=== PATIENT | male | born 1965 | race African-American/Black ===

== ENCOUNTER 2017-01-01 16:31 | Emergency (ER) | payer OTHER ==
[~2017-01-01] VITALS: Ht 180.3 cm; Wt 93.4 kg
[2017-01-01 16:32] VITALS: BP 145/86
[2017-01-01] MEDS ORDERED: GLUC750T2 (16:43)
[2017-01-01] MEDS ORDERED: PRED20TA PO (17:46)
[2017-01-01] MEDS ORDERED: ROBA500T PO (17:46)
== END 2017-01-01 18:06 | disposition home or self-care (01) ==
LOC: M ED 17:36
DX: M51.36 Other intervertebral disc degeneration, lumbar region (principal); M54.40 Lumbago with sciatica, unspecified side; Z79.899 Other long term (current) drug therapy

== ENCOUNTER 2019-03-04 14:00 | Emergency (ER) | payer OTHER ==
[~2019-03-04] VITALS: Ht 180.3 cm; Wt 94.2 kg
[~2019-03-04 14:00] MED LIST: GLUC750T13; PRED20TA PO; ROBA500T PO
[2019-03-04] MEDS ORDERED: TAMS1CAP17 PO (14:10)
[2019-03-04] MEDS ORDERED: LISI10TA4 PO (14:10)
[2019-03-04] MEDS ORDERED: D 101000 PO (14:10)
[2019-03-04] MEDS ORDERED: FAMOTIDINE INJ 20MG/2ML VIAL (S0028) IVP ONE (15:00)
[2019-03-04] MEDS ORDERED: dexameTHASONE 20 MG/5 ML VIAL (J1100) IV ONE (15:00)
[2019-03-04] MEDS ORDERED: diphenhydrAMINE INJ 50MG/ML VIAL (J1200) IV ONE (15:00)
[2019-03-04] MEDS ORDERED: AMLO25TA PO (16:43)
[2019-03-04 16:51] VITALS: BP 132/87
== END 2019-03-04 17:14 | disposition home or self-care (01) ==
LOC: M ED 14:00
DX: N18.3 Chronic kidney disease, stage 3 (moderate) (principal); T78.3XXA Angioneurotic edema, initial encounter; X58.XXXA Exposure to other specified factors, initial encounter; Y92.89 Other specified places as the place of occurrence of the external cause; Z79.899 Other long term (current) drug therapy
CPT/HCPCS: 12001; 80047; 96374; 96375; 99284; J1100; J1200

== ENCOUNTER 2019-04-28 11:50 | Day surgery (SDC) | payer OTHER ==
[~2019-04-28] VITALS: Ht 180.3 cm; Wt 91.6 kg
[~2019-04-28 11:50] MED LIST changes: +AMLO25TA PO; +D 101000 PO; +LISI10TA4 PO; +NS 1,000 ML IV ONE; +TAMS1CAP17 PO
[2019-04-28] MEDS ORDERED: LIDOCAINE 2% INJ 100 MG/5 ML SDV (FOR ANES.) As Ordered ONE (13:20)
[2019-04-28] MEDS ORDERED: propofoL 200 MG/20 ML VIAL As Ordered ONE ×2 (13:20→14:10)
--- NOTE | 2019-04-28 14:26 | ROOR ---
Patient Name: Eliu Black Procedure Date: 04/28/2019 1:57 PM Date of : 1965 Age: 53 Room: [facility] Gender: Male Note Status: Finalized Procedure: Total Colonoscopy to Cecum + Cold Snare Polypectomy Indications: Screening for colorectal malignant neoplasm Providers: Jorge Wood MD Referring MD: Niyah [facility], [facility], Admin. Requesting Provider: Medicines: Monitored Anesthesia Care Complications: No immediate complications. Procedure: Pre-Anesthesia Assessment: - The heart rate, respiratory rate, oxygen saturations, blood pressure, adequacy of pulmonary ventilation, and response to care were monitored throughout the procedure. The Colonoscope was introduced through the anus and advanced to the cecum, identified by appendiceal orifice and ileocecal valve. The colonoscopy was performed without difficulty. The patient tolerated the procedure well. The quality of the bowel preparation was fair. Findings: The perianal and digital rectal examinations were normal. Non-bleeding internal hemorrhoids were found during retroflexion. The hemorrhoids were small and Grade I (internal hemorrhoids that do not prolapse). A small polyp was found in the hepatic flexure. The polyp was sessile. The polyp was removed with a cold snare. Resection and retrieval were complete. The exam was otherwise without abnormality on direct and retroflexion views. Impression: - Preparation of the colon was fair. - Non-bleeding internal hemorrhoids. - One small polyp at the hepatic flexure, removed with a cold snare. Resected and retrieved. - The examination was otherwise normal on direct and retroflexion views. - The exam was otherwise normal to the cecum. Recommendation: - Patient has a contact number available for emergencies. The signs and symptoms of potential delayed complications were discussed with the patient. Return to normal activities tomorrow. Written discharge instructions were provided to the patient. - High fiber diet. - Discharge patient to home. - Continue present medications. - Await pathology results. - Telephone GI clinic for pathology results in 1 week. - Repeat colonoscopy in 5 years for surveillance based on pathology results. - Return to referring physician. - The findings and recommendations were discussed with the patient's family. Jorge Wood MD Jorge Wood MD 04/28/2019 2:25:56 PM Electronically signed by Jorge Wood MD Number of Addenda: 0 Note Initiated On: 04/28/2019 1:57 PM Estimated Blood Loss: Estimated blood loss: none.
[2019-04-28 14:50] VITALS: BP 164/81
== END 2019-04-28 15:20 | disposition home or self-care (01) ==
LOC: M OPP 11:50
PROVIDERS: ATTEND Internal Medicine Gastroenterology
DX: Z12.11 Encounter for screening for malignant neoplasm of colon (principal); K64.0 First degree hemorrhoids; D12.3 Benign neoplasm of transverse colon; I12.9 Hypertensive chronic kidney disease with stage 1 through stage 4 chronic kidney disease, or unspecified chronic kidney disease; M19.90 Unspecified osteoarthritis, unspecified site; R06.83 Snoring; N18.9 Chronic kidney disease, unspecified; Z88.8 Allergy status to other drugs, medicaments and biological substances; Z79.899 Other long term (current) drug therapy

== ENCOUNTER 2019-05-28 15:26 | Emergency (ER) | payer OTHER ==
[~2019-05-28] VITALS: Ht 180.3 cm; Wt 94.5 kg
[~2019-05-28 15:26] MED LIST changes: -NS 1,000 ML IV ONE
[2019-05-28 17:29] VITALS: BP 139/71
== END 2019-05-28 17:31 | disposition home or self-care (01) ==
LOC: M ED 15:26
DX: H11.32 Conjunctival hemorrhage, left eye (principal); I10 Essential (primary) hypertension; M54.9 Dorsalgia, unspecified; Z87.442 Personal history of urinary calculi; Z79.899 Other long term (current) drug therapy; Z88.8 Allergy status to other drugs, medicaments and biological substances

== ENCOUNTER 2019-07-23 12:07 | Inpatient (IN) | payer OTHER ==
[~2019-07-23] VITALS: Ht 180.3 cm; Wt 98.7 kg
[2019-07-23] MEDS ORDERED: ACETAMINOPHEN 325 MG TAB PO ONE (12:30)
[2019-07-23] MEDS ORDERED: AZITHROMYCIN 250 MG TAB PO ONE (12:30)
[2019-07-23] MEDS ORDERED: IPRATROPIUM 0.5MG/ALBUTEROL 2.5MG INH SOL UD 3ML (DUONEB)(J7620) NEB ONE ×3 (12:30→14:00)
[2019-07-23] MEDS ORDERED: PROAAER10 INH (12:58)
[2019-07-23] MEDS ORDERED: ZITHTAB PO (12:58)
--- NOTE | 2019-07-23 13:45 | REP ---
Clinical: Shortness of breath. Technique: PA and lateral. Comparison: 11/10/2015. Findings: Large right upper lobe consolidation with air bronchograms and right lower lobe opacity consistent with multifocal pneumonia. Left hemithorax appears clear. No obvious effusion. No pneumothorax. Skeletal structures intact. Impression: Multifocal right-sided pneumonia. Electronically Signed by Rodolfo Gupta MD 07/23/2019 01:36 P
[2019-07-23] MEDS ORDERED: NS 1,000 ML IV ONE (14:00)
[2019-07-23] MEDS ORDERED: cefTRIAXone SOD 1 GM in D5W MINI-BAG PLUS 50 ML IV ONE (14:00)
[2019-07-23] MEDS ORDERED: AMLO2.5T3 PO (14:06)
[2019-07-23] MEDS ORDERED: VITA100066 PO (14:06)
[2019-07-23 14:11] LABS: HEMATOCRIT 42.1 % (42.0-52.0); HEMOGLOBIN 14.3 g/dl (13.5-17.5); MEAN CORPUSCULAR HEMOGLOBIN 29.2 pg (27.0-33.0); MEAN CORPUSCULAR VOLUME 86.1 fl (80.0-96.0); PLATELET COUNT, AUTOMATED 106 10^3/uL (150-450); RED BLOOD COUNT 4.89 10^6/uL (4.30-6.10)
[2019-07-23 14:32] LABS: CREATININE FOR GFR 1.93 MG/DL (0.70-1.30); GLOMERULAR FILTRATION RATE 47.4 (>56); POTASSIUM SERUM 3.8 MEQ/L (3.5-5.1)
--- NOTE | 2019-07-23 15:00 | REP ---
Clinical: Shortness of breath. Technique: Axial noncontrast images from the thoracic inlet to the upper abdomen with coronal and sagittal re-formations. Comparison: Chest x-ray dated 07/23/2019 Findings: Right upper lobe and right lower lobe consolidations with air bronchograms consistent with multifocal pneumonia. Very minimal atelectasis noted in the right middle lobe and left base. No effusion. No pneumothorax. Tracheobronchial tree is patent. No significant adenopathy. Mediastinum demonstrates normal thoracic aorta, pulmonary vasculature and heart/pericardium. Musculoskeletal structures are intact. Impression: Acute right-sided multifocal pneumonia. Follow-up to resolution. Electronically Signed by Rodolfo Gupta MD 07/23/2019 02:53 P
[2019-07-23] MEDS ORDERED: ACETAMINOPHEN TAB 650MG DOSE (2X325MG) PO PRN (15:45)
[2019-07-23] MEDS ORDERED: ONDANSETRON 4MG/2ML VIAL (J2405) IV PRN (15:45)
[2019-07-23 16:30] VITALS: BP 107/72
[2019-07-23] MEDS: NS 1,000 ML IV SCH (17:07)
--- NOTE | 2019-07-23 17:29 | HPEPDOC ---
[facility] Medical History & Physical Date of Admission Jul 23, 2019 Date of Service: Jul 23, 2019 Attending Physician: JABARI SOTO MD History and Physical CHIEF COMPLAINT: Shortness of Breath and chills HISTORY OF PRESENT ILLNESS: Patient is a 53 year male who presented to the [facility] ER with complaint of shortness of breath and fevers starting three days ago. He stated that he was at the movies with his children when he noticed shortness of breath. and chills. He stated that since that time he has had chills and felt feverish. He denied any coughing or sputum production. He denies any chest pain. He denies any pain with deep inspiration however states that he does feel uncomfortable. He admits to some wheezing. He admits to some nausea but denies vomiting. In addition to his shortness of breath the patient admits to diarrhea which started on Sunday as well. He stated that he has continued to have diarrhea today. In the ER the patient was slightly hypertensive and febrile. He was hypoxic with an oxygen saturation of 89% on room air. The patient was tachycardic. He received a chest x-ray which demonstrated a large right sided consolidation. This was followed up with a CT of the chest which demonstrated acute right-sided multifocal pneumonia. Additionally, the patient was found to have an elevation in his Creatinine. He does admit to a history of kidney issues in which he has no function of his left kidney. He states that he is unsure of what the cause of his kidney issue was. The patient was ambulated in the ER with oxygen and desaturations were noted to less than 88%. Hospitalist service was consulted and the patient was admitted for further evaluation and management PAST MEDICAL HISTORY: 1. Hypertension 2. Chronic Kidney Disease (Cr of 1.7 in 03/2010) 3. 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 He is a nonsmoker. He denies vaping. He denies any tobacco use. He denies IV or illicit drug use. He denies any recent contacts or exposure to TB. FAMILY HISTORY: Patients mother is a diabetic. His father has a history of stroke. His brother and sisters are alive and well without any significant medical history ALLERGIES: Please see below. REVIEW OF SYSTEMS: CONSTITUTIONAL: Admits to fevers and chills. Denies unintentional weight loss. Denies night sweats HEENT: Denies dysphagia or sore throat. Denies lymphadenopathy. CARDIOVASCULAR: Denies chest pain or pressure. Denies palpitations or feelings of the heart racing RESPIRATORY: Admits to shortness of breath. Denies cough or sputum production. Denies hemoptysis. GASTROINTESTINAL: Denies abdominal pain. Denies nausea, vomiting. Admits to diarrhea. Denies bloody stool or dark tarry stool GENITOURINARY: Denies dysuria or increased frequency/urgency SKIN: Denies rashes or lesions MUSCULOSKELETAL: Denies weakness. Denies muscle pains or aches NEUROLOGICAL: Denies changes in gait or speech. Denies changes in balance PSYCHIATRIC: Denies depression or anxiety ENDOCRINE: Denies heat intolerance or cold intolerance. Denies diabetes HEMATOLOGIC/LYMPHATIC: Denies easy bruising or bleeding. Denies history of DVT or PE HOME MEDICATIONS: Please see below. PHYSICAL EXAMINATION: VITAL SIGNS: Temperature 100.2, pulse 110, respiratory rate 27, blood pressure 140/87, pulse oximetry 89% on room air. GENERAL APPEARANCE: Patient is awake, alert, and oriented. He appears in no acute distress. Lying comfortably in bed HEENT: Atraumatic, normocephalic. Eyes are nonicteric. Trachea is midline. No palpable cervical, axillary, or cervical lymphadenopathy CARDIOVASCULAR: Normal S1, S2. Tachycardic rate. Regular rhythm. No clicks rubs or murmurs LUNGS: Decreased breath sounds on the right. Decreased tactile fremitus on right. Dullness to percussion on the right. Rhonchi present. Symmetric chest expansion. Good respiratory effort ABDOMEN: Soft, nondistended. Nontender to palpation. No rebound tenderness or guarding. Normoactive bowel sounds throughout EXTREMITIES: No edema. Full and equal pulses in bilateral upper lower extremities. No tenderness to palpation of calves NEUROLOGICAL: No focal neurological deficits PSYCHIATRIC: Mood and affect appear appropriate LABORATORY DATA: See below. IMAGING: Clinical: Shortness of breath. Technique: PA and lateral. Comparison: 11/10/2015. Findings: Large right upper lobe consolidation with air bronchograms and right lower lobe opacity consistent with multifocal pneumonia. Left hemithorax appears clear. No obvious effusion. No pneumothorax. Skeletal structures intact. Impression: Multifocal right-sided pneumonia. Electronically Signed by Rodolfo Gupta MD 07/23/2019 01:36 P Clinical: Shortness of breath. Technique: Axial noncontrast images from the thoracic inlet to the upper abdomen with coronal and sagittal re-formations. Comparison: Chest x-ray dated 07/23/2019 Findings: Right upper lobe and right lower lobe consolidations with air bronchograms consistent with multifocal pneumonia. Very minimal atelectasis noted in the right middle lobe and left base. No effusion. No pneumothorax. Tracheobronchial tree is patent. No significant adenopathy. Mediastinum demonstrates normal thoracic aorta, pulmonary vasculature and heart/pericardium. Musculoskeletal structures are intact. Impression: Acute right-sided multifocal pneumonia. Follow-up to resolution. Electronically Signed by Rodolfo Gupta MD 07/23/2019 02:53 P MICROBIOLOGY: Please see below. ASSESSMENT: Patient is a 53 year old male who presented to [facility] ER with complaint of fever, chills, and shortness of breath, and diarrhea since Sunday and found to have a large multifocal pneumonia of the right lung . PLAN: 1. Sepsis secondary to Right Lung Multifocal pneumonia -Patient presented to the [facility] ER with complaint of fevers, chills and shortness of breath. He has been found to have a right sided multifocal pneumonia which appears fairly extensive on CT imaging. The patient denies any cough or sputum production. -Patient is tachycardic, febrile and with source of infection. He has received 1L bolus in ER. Continued on IVF at rate of 100ml/hr. Currently normotensive -Will treat for likely Community Acquired Pneumonia with IV Ceftriaxone and Azithromycin. -Duo Nebs -Will order Influenza A/B, Urine legionella, urine strep, MRSA screen -Respiratory orders for O2 sats 88-92% -Telemetry ordered due to tachycardia/sepsis. Will discontinue pending clinical improvement 2. Hypoxia 2/2 Multifocal pneumonia vs PE -Patient presented with hypoxia. This is most likely secondary to his large right sided multifocal pneumonia. However, the patient states that he has not had any coughing or sputum production. He does admit to some pleuritic type pain. Although this once again can be explained by his fairly large right lung pneumonia -Patient denies any history of DVT or PE. He has no objective findings on exam to suggest DVT. Wells Criteria for PE demonstrated a score of 1.5 indicating a low risk of PE or approximately a 1.3% chance. -Patient has kidney disease and therefore a CTA could not be ordered. A D- dimer has been ordered. This was discussed with the patient as, if the D-dimer returns positive he would need a VQ-scan and possibly anticoagulation with Lovenox. 3. Diarrhea and nausea possibly 2/2 gastroenteritis -Patient has stated that he has had diarrhea since Sunday. He denies any recent antibiotic use. Will add a GI panel -Zofran ordered for nausea 4. Elevated Cr and decreased GFR -Unclear what patients baseline is. According to the medical record his Cr in 2009 was 1.7. -Will continue with IVF. Will trend Cr. -Renal U/S has been ordered. -Urinalysis pending -Patient has a history of left renal atrophy. Possibly secondary to hypertensive nephrosclerosis 5. Hypertension -Patient is on Norvasc at home. He is currently normotensive. Hold parameters for SBP < 100. 6. DVT prophylaxis -Heparin SQ Q8H Vital Signs Vital Signs Date Time Temp Pulse Resp B/P (MAP) Pulse Ox O2 Delivery O2 Flow Rate FiO2 07/23/19 14:51 97 07/23/19 13:47 100.1 07/23/19 13:07 93 07/23/19 12:19 07/23/19 12:19 Room Air 07/23/19 12:07 27 Laboratory Data Labs 24H Laboratory Tests 2 07/23/19 13:59: Nucleated Red Blood Cells % (auto) 0.0, Anion Gap 12, Glomerular Filtration Rate 47.4L, Lactic Acid Level 2.0, Calcium Level 8.0L CBC/BMP Laboratory Tests 07/23/19 13:59 Microbiology Microbiology 07/23/19 Blood Culture, Received Pending Home Medications Scheduled Amlodipine Besylate (Amlodipine Besylate) 2.5 Mg Tablet, 2.5 MG PO DAILY Azithromycin (Zithromax) 250 Mg Tablet, 250 MG PO ASDIRECTED Day 1- take two tablets once. Day 2, 3, 4 , 5 take one tablet once daily Cholecalciferol (Vitamin D3) (Vitamin D3) 1,000 Unit Tablet, 2,000 UNIT PO DAILY Scheduled PRN Albuterol Sulfate (Proair Hfa) 8.5 Gm Hfa.aer.ad, 2 PUFF INH Q4-6HP PRN for wheezing Allergies Coded Allergies: lisinopril (Verified Allergy, Unknown, SWELLING OF LIPS, 04/21/19) A-FIB/CHADSVASC A-FIB History Current/History of A-Fib/PAF?: No GME ATTESTATION GME ATTESTATION My faculty preceptor for this patient encounter was physically present during the encounter and was fully available. All aspects of the patient interview, examination, medical decision making process, and medical care plan development were reviewed and approved by the faculty preceptor. The faculty preceptor is aware and concurs with the plan as stated in the body of this note and will attest to such by his/her cosignature. ATTENDING NOTE I, Jabari Soto, have independently examined this patient and performed my own physical exam, as well as reviewed the documentation and edited where necessary. I have discussed in detail with the resident / student the findings and plan of treatment as documented by the resident / student and edited their note. I agree with their findings and treatment plan and have edited their documentation. I will continue to follow the patient during this hospital stay. CARA SZYMANSKI DO Jul 23, 2019 17:29 JABARI SOTO MD Jul 24, 2019 15:44
[2019-07-23 17:58] LABS: INFLUENZA A AMPLIFICATION NEGATIVE (NEGATIVE); INFLUENZA B AMPLIFICATION NEGATIVE (NEGATIVE)
[2019-07-23 18:26] LABS: APPEARANCE, URINE CLEAR (CLEAR); BACTERIA, URINE AUTO NEGATIVE (NEGATIVE); BILIRUBIN, URINE AUTO NEGATIVE (NEGATIVE); BLOOD, URINE BLOOD 2+ (NEGATIVE); COLOR, URINE YELLOW (YELLOW); GLUCOSE, URINE (UA) AUTO NEGATIVE (NEGATIVE); KETONE, URINE AUTO NEGATIVE (NEGATIVE); LEUKOCYTE ESTERASE, URINE AUTO NEGATIVE (NEGATIVE); NITRITE, URINE AUTO NEGATIVE (NEGATIVE); PROTEIN, URINE AUTO NEGATIVE (NEGATIVE); RBC, URINE AUTO 0 /HPF (0-3); SPECIFIC GRAVITY URINE AUTO 1.011 (1.002-1.035); SQUAMOUS EPITHELIAL CELL UR AU 0 /HPF (0-6); UROBILINOGEN, URINE AUTO 0.2 mg/dL (0.0-2.0); WBC, URINE AUTO 0 /HPF (0-3)
[2019-07-23] MEDS ORDERED: ENOXAPARIN 100MG/1ML SYRINGE (J1650) SC ONE (19:00)
[2019-07-23 19:29] VITALS: BP 149/76
[2019-07-23 20:00] VITALS: BP 149/76; O2SAT 94
[2019-07-23] MEDS: IPRATROPIUM 0.5MG/ALBUTEROL 2.5MG INH SOL UD 3ML (DUONEB)(J7620) NEB SCH (20:29)
[2019-07-23 21:00] VITALS: O2SAT 94
[2019-07-23] MEDS ORDERED: HEPARIN SOD (PORCINE) 5000 UNITS/ML VIAL SQ SCH ×2 (21:00→22:00)
[2019-07-23 22:00] VITALS: O2SAT 95
[2019-07-23 23:00] VITALS: O2SAT 94
[2019-07-24] VITALS (24 sets, daily range): BP systolic 119–141; BP diastolic 75–82; O2SAT 91–97
[2019-07-24] MEDS: NS 1,000 ML IV SCH ×3 (00:15→13:22)
[2019-07-24] MEDS: IPRATROPIUM 0.5MG/ALBUTEROL 2.5MG INH SOL UD 3ML (DUONEB)(J7620) NEB SCH ×4 (02:00→20:15)
[2019-07-24 06:11] LABS: HEMATOCRIT 36.9 % (42.0-52.0); HEMOGLOBIN 12.9 g/dl (13.5-17.5); MEAN CORPUSCULAR HEMOGLOBIN 29.8 pg (27.0-33.0); MEAN CORPUSCULAR VOLUME 85.2 fl (80.0-96.0); PLATELET COUNT, AUTOMATED 113 10^3/uL (150-450); RED BLOOD COUNT 4.33 10^6/uL (4.30-6.10); WHITE BLOOD COUNT 15.6 10^3/uL (4.0-10.0)
[2019-07-24 06:35] LABS: BLOOD UREA NITROGEN 20 MG/DL (7-18); CALCIUM LEVEL 8.1 MG/DL (8.5-10.1); CARBON DIOXIDE LEVEL 24 MEQ/L (21-32); CHLORIDE LEVEL 106 MEQ/L (98-107); CREATININE FOR GFR 1.55 MG/DL (0.70-1.30); GLOMERULAR FILTRATION RATE > 60.0 (>56); GLUCOSE, FASTING 96 MG/DL (70-100); POTASSIUM SERUM 3.5 MEQ/L (3.5-5.1); SODIUM LEVEL 138 MEQ/L (136-145)
--- NOTE | 2019-07-24 11:39 | IPNPDOC ---
Date Seen The patient was seen on 07/24/19. Progress Note SUBJECTIVE: Patient was seen and examined at bedside this morning. There have been no adverse events reported overnight. He continues to have some chills although he reports improvement. He has had some blood tinged sputum last night. The patient received a therapeutic dose of lovenox last night as there was concern for possible PE. He is currently receiving a Ventilation Perfusion scan as the patient was unable to receive a CTA due to his renal function. The patient otherwise has no new complaints OBJECTIVE PHYSICAL EXAMINATION: VITAL SIGNS: Please see below. GENERAL: Awake, alert, and oriented. Appears in no acute distress. Lying comfortably in bed HEENT: Atraumatic, normocephalic. Eyes are nonicteric. trachea is midline CARDIOVASCULAR: Normal S1, S2. Regular rate and rhythm. No clicks rubs or murmurs RESPIRATORY: Decreased breath sounds on the right. Improvement in aeration in comparison to previous exam. No crackles. Slight rhonchi. No wheezing. Symmetric chest expansion with good respiratory effort ABDOMINAL: soft, nondistended. Nontender. No rebound tenderness or guarding. Normoactive bowel sounds EXTREMITIES: No edema. No tenderness of calves. No swelling in calves. Full and equal pulses in bilateral upper and lower extremities NEUROLOGICAL: No focal neurological deficits PSYCHOLOGICAL: Mood and affect appear appropriate LABORATORY DATA, IMAGING STUDIES, MICROBIOLOGY: Please see below. DVT prophylaxis ordered?: Patient received 90mg Lovenox yesterday. ASSESSMENT AND PLAN: Patient is a 53 year old male who presented to the [facility] ER with complaint of chills, fevers, and shortness of breath and found to have a right lung pneumonia PROBLEMS: 1.1. Sepsis secondary to Right Lung Multifocal pneumonia -Patient presented to the [facility] ER with complaint of fevers, chills and shortness of breath. He has been found to have a right sided multifocal pneumoni a which appears fairly extensive on CT imaging. The patient denies any cough or sputum production. -Will continue on Ceftriaxone and Azithromycin for community acquired pneumonia -Continue Duo Nebs -Urine legionella, urine strep pending MRSA screen -Influenza A/B, and MRSA screen negative -Respiratory orders for O2 sats 88-92% -Telemetry ordered due to tachycardia/sepsis. Will discontinue pending clinical improvement -Continue IVF 100mls/hr NS 2. Hypoxia 2/2 Multifocal pneumonia vs PE -Patient presented with hypoxia. This is most likely secondary to his large right sided multifocal pneumonia. However, the patient states that he has not had any coughing or sputum production. He does admit to some pleuritic type pain. Although this once again can be explained by his fairly large right lung pneumonia -Patient denies any history of DVT or PE. He has no objective findings on e xam to suggest DVT. Wells Criteria for PE demonstrated a score of 1.5 indicating a low risk of PE or approximately a 1.3% chance. -Patients D-dimer was positive. He has received a therapeutic dose of Lovenox. VQ scan is to be completed today 3. Diarrhea and nausea possibly 2/2 gastroenteritis -Patient has stated that he has had diarrhea since Sunday. He denies any recent antibiotic use. GI panel pending -Zofran ordered for nausea 4. Elevated Cr and decreased GFR -Unclear what patients baseline is. According to the medical record his Cr in 2009 was 1.7. -Will continue with IVF. Patients Cr has improved overnight -Renal U/S has been completed awaiting read -Urinalysis normal -Patient has a history of left renal atrophy. Possibly secondary to hypertensive nephrosclerosis 5. Hypertension -Patient is on Norvasc at home. He is currently normotensive. Hold parameters for SBP < 100. 6. DVT prophylaxis -Heparin SQ Q8H VS, I&O, 24H, Fishbone Vital Signs/I&O Vital Signs Date Time Temp Pulse Resp B/P (MAP) Pulse Ox O2 Delivery O2 Flow Rate FiO2 07/24/19 10:05 94 122/75 07/24/19 08:46 2.0 07/24/19 08:00 98.4 18 96 Nasal Cannula I&O- Last 24 Hours up to 6 AM 07/24/19 06:00 Intake Total 3855 ml Output Total 875 ml Balance 2980 ml Laboratory Data 24H LABS Laboratory Tests 2 07/23/19 13:59: Nucleated Red Blood Cells % (auto) 0.0, Anion Gap 12, Glomerular Filtration Rate 47.4L, Lactic Acid Level 2.0, Calcium Level 8.0L 07/23/19 17:11: D-Dimer, Quantitative 3482.39H 07/23/19 17:17: Influenza Type A (RT-PCR) NEGATIVE, Influenza Type B (RT-PCR) NEGATIVE, M ethicillin-Resist S.aureus DNA PCR NOT DETECTED 07/23/19 18:07: Urine Color YELLOW, Urine Appearance CLEAR, Urine pH 6.0, Urine Specific Garvin 1.011, Urine Protein NEGATIVE, Urine Glucose (Auto)(UA) NEGATIVE, Urine Ketones (Auto) NEGATIVE, Urine Blood 2+H, Urine Nitrite NEGATIVE, Urine Bilirubin NEGATIVE, Urine Urobilinogen 0.2, Urine Leukocyte Esterase (Auto) NEGATIVE, Urine WBC (Auto) 0, Urine RBC (Auto) 0, Urine Hyaline Casts (Auto) 0, Urine Bacteria (Auto) NEGATIVE, Urine Squamous Epithelial Cells 0, Urine Sperm (Auto) 07/24/19 05:48: Nucleated Red Blood Cells % (auto) 0.0, Anion Gap 8, Glomerular Filtration Rate > 60.0, Calcium Level 8.1L CBC/BMP Laboratory Tests 07/23/19 13:59 07/24/19 05:48 Microbiology Microbiology 07/23/19 Blood Culture, Received Pending 07/23/19 Blood Culture, Received Pending GME ATTESTATION GME ATTESTATION My faculty preceptor for this patient encounter was physically present during the encounter and was fully available. All aspects of the patient interview, examination, medical decision making process, and medical care plan development were reviewed and approved by the faculty preceptor. The faculty preceptor is aware and concurs with the plan as stated in the body of this note and will attest to such by his/her cosignature. ATTENDING NOTE I, Jabari Soto, have independently examined this patient and performed my own physical exam, as well as reviewed the documentation and edited where necessary. I have discussed in detail with the resident / student the findings and plan of treatment as documented by the resident / student and edited their note. I agree with their findings and treatment plan and have edited their documentation. I will continue to follow the patient during this hospital stay. CARA SZYMANSKI DO Jul 24, 2019 11:39 JABARI SOTO MD Jul 24, 2019 15:44
[2019-07-24] MEDS: AZITHROMYCIN INJ 500 MG, VIAL MATE ADAPTER 1 EACH in D5W 250 ML IV SCH (13:27)
--- NOTE | 2019-07-24 13:40 | REP ---
VENTILATION/PERFUSION LUNG SCAN: HISTORY: Hypoxia. Comparison chest x-ray and chest CT study July 23, 2019 show extensive pneumonia on the right. TECHNIQUE: 1.1 mCi technetium 99m DTPA aerosol is utilized for the ventilation study and is followed by a 5.4 mCi technetium 99m MAA intravenous dose given for the perfusion exam. A series of eight planar images are acquired for each portion of the study. FINDINGS: There is extensive matched ventilation perfusion deficit throughout most of the right lung with volume loss visible corresponding to the radiographic findings. Ventilation study shows swallowed tracer uptake in the esophagus. There is no ventilation perfusion mismatch to suggest pulmonary embolus. IMPRESSION: Matched ventilation perfusion deficit essentially globally in the right lung. No V/Q mismatch seen. Low probability scan for pulmonary embolus. Homogeneous uptake is seen in the left lung. Electronically Signed by Jared Clancy MD 07/24/2019 02:06 P
[2019-07-24] MEDS: cefTRIAXone SOD 2 GM in D5W MINI-BAG PLUS 50 ML IV SCH (14:34)
--- NOTE | 2019-07-24 16:59 | REP ---
URINARY TRACT SONOGRAPHY: HISTORY: Acute kidney injury. Chronic kidney disease. COMPARISON: CT study of the abdomen 07/01/2012. Comparison nuclear renal [id number]/2012. Known severe hydronephrosis and non-functioning left kidney. SONOGRAPHIC FINDINGS: Scanning at the level of the urinary bladder shows smooth bladder wall. Emptying ureteral jets are confirmed on the right side but not the left on color Doppler interrogation of the bladder lumen. Prevoid bladder volume is calculated at 373 mL. No extravesical lesion is seen. Severe hydronephrosis of the left kidney is seen. There is no discernible ureteral dilation. 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 Profound renal cortical atrophy is again seen as on prior CT study. On the right renal cortical echogenicity pattern is increased consistent with chronic medical renal disease. No right sided hydronephrosis is seen. No calculus or cyst is seen on either side. The right kidney measures 14.1 x 6.7 x 4.9 cm. Left renal dimensions are 13.6 x 8.8 x 8.3 cm. IMPRESSION: 1. 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 No evidence of obstructive uropathy on the right. 2. 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 Otherwise negative. Electronically Signed by Jared Clancy MD 07/24/2019 06:15 P
[2019-07-25] VITALS (24 sets, daily range): BP systolic 122–147; BP diastolic 77–97; O2SAT 91–96
[2019-07-25] MEDS: IPRATROPIUM 0.5MG/ALBUTEROL 2.5MG INH SOL UD 3ML (DUONEB)(J7620) NEB SCH ×4 (02:00→20:00)
[2019-07-25 06:03] LABS: HEMATOCRIT 38.8 % (42.0-52.0); MEAN CORPUSCULAR HGB CONC 33.5 g/dl (32.0-36.5); MEAN CORPUSCULAR VOLUME 86.6 fl (80.0-96.0); PLATELET COUNT, AUTOMATED 119 10^3/uL (150-450); RED BLOOD COUNT 4.48 10^6/uL (4.30-6.10); WHITE BLOOD COUNT 18.2 10^3/uL (4.0-10.0)
[2019-07-25 06:21] LABS: BLOOD UREA NITROGEN 16 MG/DL (7-18); CALCIUM LEVEL 8.5 MG/DL (8.5-10.1); CARBON DIOXIDE LEVEL 22 MEQ/L (21-32); CHLORIDE LEVEL 109 MEQ/L (98-107); CREATININE FOR GFR 1.37 MG/DL (0.70-1.30); GLOMERULAR FILTRATION RATE > 60.0 (>56); GLUCOSE, FASTING 101 MG/DL (70-100); POTASSIUM SERUM 3.5 MEQ/L (3.5-5.1); SODIUM LEVEL 139 MEQ/L (136-145)
--- NOTE | 2019-07-25 08:20 | REP ---
Clinical: Pneumonia. Comparison: 07/23/2019. Findings: Consolidations involving the right upper lobe and right lower lobe with moderate right pleural effusion again noted. The left hemithorax is well-aerated and clear. The cardiac silhouette is stable and normal. No pneumothorax. Impression: Multifocal right sided infiltrates compatible with acute pneumonia unchanged. Right pleural effusion now suggested. Electronically Signed by Rodolfo Gupta MD 07/25/2019 08:12 A
[2019-07-25] MEDS: HEPARIN SOD (PORCINE) 5000 UNITS/ML VIAL SQ SCH ×2 (09:00→21:25)
[2019-07-25 09:16] LABS: C REACTIVE PROTEIN QUANTITATIV 41.2 MG/DL (0.00-0.30)
[2019-07-25] MEDS: NS 1,000 ML IV SCH ×2 (09:28→21:26)
[2019-07-25] MEDS: guaiFENesin ER 600 MG TAB PO SCH ×2 (09:28→21:26)
--- NOTE | 2019-07-25 11:20 | IPNPDOC ---
Date Seen The patient was seen on 07/25/19. Progress Note SUBJECTIVE: Patient was seen and examined this morning at bedside. He currently has no complaints. He states that he feels like he has improved since admission. He denies fevers or chills. He denies cough. He does state that he had an episode of loose stool today. He states that is otherwise feeling well OBJECTIVE PHYSICAL EXAMINATION: VITAL SIGNS: Please see below. GENERAL: Awake, alert, and oriented. Appears in no acute distress. Lying comfortably in bed HEENT: Atraumatic, normocephalic. Eyes are nonicteric. trachea is midline CARDIOVASCULAR: Normal S1, S2. Regular rate and rhythm. No clicks rubs or murmurs RESPIRATORY: Decreased breath sounds on the right. Continued rhonchi. No w heezing. Symmetric chest expansion with good respiratory effort ABDOMINAL: soft, nondistended. Nontender. No rebound tenderness or guarding. Normoactive bowel sounds EXTREMITIES: No edema. No tenderness of calves. No swelling in calves. Full and equal pulses in bilateral upper and lower extremities NEUROLOGICAL: No focal neurological deficits PSYCHOLOGICAL: Mood and affect appear appropriate LABORATORY DATA, IMAGING STUDIES, MICROBIOLOGY: Please see below. DVT prophylaxis ordered?: Heparin SQ ASSESSMENT AND PLAN: Patient is a 53 year old male who presented to the [facility] ER with complaint of chills, fevers, and shortness of breath and found to have a right lung pneumonia PROBLEMS: 1.1. Sepsis secondary to Right Lung Multifocal pneumonia -Patient presented to the [facility] ER with complaint of fevers, chills and shortness of breath. He has been found to have a right sided multifocal p neumonia which appears fairly extensive on CT imaging. The patient denies any cough or sputum production. -Will continue on Ceftriaxone and Azithromycin for community acquired pneumonia -Continue Duo Nebs -Urine legionella, urine strep pending MRSA screen -Influenza A/B, and MRSA screen negative -Respiratory orders for O2 sats 88-92% -Telemetry ordered due to tachycardia/sepsis. Will discontinue pending clinical improvement -Continue IVF 100mls/hr NS -Patient shows improvement clinically. His white blood cell count is currently trending up. CRP has been declining. Unclear whether elevation in WBC is secondary to patients pneumatic process or a different source. Will continue to trend CBC. If patients WBC continues to elevate may consider CT scan of chest 2. Hypoxia 2/2 Multifocal pneumonia, unlikely 2/2 PE -Patient presented with hypoxia. This is most likely secondary to his large right sided multifocal pneumonia. However, the patient states that he has not had any coughing or sputum production. He does admit to some pleuritic type pain. Although this once again can be explained by his fairly large right lung pneumonia -Patient denies any history of DVT or PE. He has no objective findings on exam to suggest DVT. Wells Criteria for PE demonstrated a score of 1.5 indicating a low risk of PE or approximately a 1.3% chance. -Patients D-dimer was positive. He has received a therapeutic dose of Lovenox. VQ scan was completed today and was negative for PE. -Patient is currently on room air 3. Leukocytosis -Patient has a continued leukocytosis despite antibiotic treatment. CRP is trending down and patient is improving clinically. Will continue to trend CBC. -Will consider CT imaging of chest if patients WBC continues to increase. 4. Diarrhea and nausea possibly 2/2 gastroenteritis -Patient has stated that he has had diarrhea since Sunday. He denies any recent antibiotic use. -His GI panel is negative. -Zofran ordered for nausea 5. Elevated Cr and decreased GFR -Unclear what patients baseline is. According to the medical record his Cr in 2009 was 1.7. -Will continue with IVF. Patients Cr has improved overnight -Urinalysis normal -Patient has a history of left renal atrophy. 6. Hypertension -Patient is on Norvasc at home. He is currently normotensive. Hold parameters for SBP < 100. 7. DVT prophylaxis -Heparin SQ Q8H VS, I&O, 24H, Fishbone Vital Signs/I&O Vital Signs Date Time Temp Pulse Resp B/P (MAP) Pulse Ox O2 Delivery O2 Flow Rate FiO2 07/25/19 11:00 95 Room Air 07/25/19 09:28 71 135/85 07/25/19 08:00 98.1 20 1.0 I&O- Last 24 Hours up to 6 AM 07/25/19 06:00 Intake Total 5285 ml Output Total 2850 ml Balance 2435 ml Laboratory Data 24H LABS Laboratory Tests 2 07/25/19 05:46: Nucleated Red Blood Cells % (auto) 0.0, Anion Gap 8, Glomerular Filtration Rate > 60.0, Calcium Level 8.5, C-Reactive Protein, Quantitative 21.70H CBC/BMP Laboratory Tests 07/25/19 05:46 Microbiology Microbiology 07/25/19 Gastrointestinal Tract Panel (PCR) - Final, Complete 07/23/19 Blood Culture - Preliminary, Resulted No growth after 24 hours . All specim... 07/23/19 Blood Culture - Preliminary, Resulted No growth after 24 hours . All specim... GME ATTESTATION GME ATTESTATION My faculty preceptor for this patient encounter was physically present during the encounter and was fully available. All aspects of the patient interview, examination, medical decision making process, and medical care plan development were reviewed and approved by the faculty preceptor. The faculty preceptor is aware and concurs with the plan as stated in the body of this note and will attest to such by his/her cosignature. ATTENDING NOTE I, Jabari Soto, have independently examined this patient and performed my own physical exam, as well as reviewed the documentation and edited where necessary. I have discussed in detail with the resident / student the findings and plan of treatment as documented by the resident / student and edited their note. I agree with their findings and treatment plan and have edited their documentation. I wi ll continue to follow the patient during this hospital stay. CARA SZYMANSKI DO Jul 25, 2019 11:20 JABARI SOTO MD Jul 25, 2019 16:41
[2019-07-25] MEDS: AZITHROMYCIN INJ 500 MG, VIAL MATE ADAPTER 1 EACH in D5W 250 ML IV SCH (12:49)
[2019-07-25] MEDS: cefTRIAXone SOD 2 GM in D5W MINI-BAG PLUS 50 ML IV SCH (16:04)
[2019-07-26] VITALS (11 sets, daily range): BP systolic 124–164; BP diastolic 61–92; O2SAT 95–99
[2019-07-26] MEDS: IPRATROPIUM 0.5MG/ALBUTEROL 2.5MG INH SOL UD 3ML (DUONEB)(J7620) NEB SCH ×4 (02:00→20:48)
[2019-07-26] MEDS: NS 1,000 ML IV SCH (07:30)
[2019-07-26 08:17] LABS: HEMATOCRIT 37.7 % (42.0-52.0); HEMOGLOBIN 12.5 g/dl (13.5-17.5); MEAN CORPUSCULAR HGB CONC 33.2 g/dl (32.0-36.5); MEAN CORPUSCULAR VOLUME 87.5 fl (80.0-96.0); PLATELET COUNT, AUTOMATED 133 10^3/uL (150-450); RED BLOOD COUNT 4.31 10^6/uL (4.30-6.10); WHITE BLOOD COUNT 11.9 10^3/uL (4.0-10.0)
[2019-07-26 08:35] LABS: BLOOD UREA NITROGEN 14 MG/DL (7-18); CALCIUM LEVEL 8.6 MG/DL (8.5-10.1); CARBON DIOXIDE LEVEL 21 MEQ/L (21-32); CHLORIDE LEVEL 110 MEQ/L (98-107); CREATININE FOR GFR 1.41 MG/DL (0.70-1.30); GLOMERULAR FILTRATION RATE > 60.0 (>56); GLUCOSE, FASTING 108 MG/DL (70-100); POTASSIUM SERUM 3.3 MEQ/L (3.5-5.1); SODIUM LEVEL 141 MEQ/L (136-145)
[2019-07-26] MEDS: guaiFENesin ER 600 MG TAB PO SCH ×2 (08:38→20:40)
[2019-07-26] MEDS ORDERED: POTASSIUM CHLORIDE 10 MEQ SR TABLET PO ONE (09:30)
--- NOTE | 2019-07-26 10:03 | IPNPDOC ---
Date Seen The patient was seen on 07/26/19. Progress Note SUBJECTIVE: Patient was seen and examined thing morning at bedside. He currently states that he is feeling well. He denies any fevers or chills. He states that he has had some minimal blood tinged sputum a couple times. The patient had loose stools on admission however states that he is not having multiple episodes a day. There have been no adverse events reported overnight. OBJECTIVE PHYSICAL EXAMINATION: VITAL SIGNS: Please see below. GENERAL: Awake, alert, and oriented. Appears in no acute distress. Lying comfortably in bed HEENT: Atraumatic, normocephalic. Eyes are nonicteric. trachea is midline CARDIOVASCULAR: Normal S1, S2. Regular rate and rhythm. No clicks rubs or murmurs RESPIRATORY: Slightly decreased breath sounds on the right. Some rhonchi. Symmetric chest expansion with good respiratory effort ABDOMINAL: soft, nondistended. Nontender. No rebound tenderness or guarding. Normoactive bowel sounds EXTREMITIES: No edema. No tenderness of calves. No swelling in calves. Full and equal pulses in bilateral upper and lower extremities NEUROLOGICAL: No focal neurological deficits PSYCHOLOGICAL: Mood and affect appear appropriate LABORATORY DATA, IMAGING STUDIES, MICROBIOLOGY: Please see below. DVT prophylaxis ordered?: EZRA and Sequentials ASSESSMENT AND PLAN: Patient is a 53 year old male who presented to the [facility] ER with complaint of chills, fevers, and shortness of breath and found to have a right lung pneumonia PROBLEMS: 1. Sepsis secondary to Right Lung Multifocal pneumonia -Patient presented to the [facility] ER with complaint of fevers, chills and regino rtness of breath. He has been found to have a right sided multifocal pneumonia which appears fairly extensive on CT imaging. The patient denies any cough or sputum production. -Continue Duo Nebs -Urine legionella, urine strep pending MRSA screen -Influenza A/B, and MRSA screen negative -Respiratory orders for O2 sats 88-92% -Patient has shown clinical improvement. His WBC and CRP are trending down. He remains afebrile and on room air. IV fluids have been discontinued. Tele has been discontinued. -Transition to PO antibiotics with Cefdinir 300 mg BID and Azithromycin 500 mg daily for community acquired pneumonia coverage 2. Hypoxia 2/2 Multifocal pneumonia, unlikely 2/2 PE -Patient presented with hypoxia. This was most likely secondary to his large right sided multifocal pneumonia. -Patient denies any history of DVT or PE. He has no objective findings on exam to suggest DVT. Wells Criteria for PE demonstrated a score of 1.5 indicating a low risk of PE or approximately a 1.3% chance. -Patients D-dimer was positive. VQ scan negative for DVT -Patient is currently on room air -Continuous pulse oximetry has been discontinued 3. Leukocytosis -Patients WBC is trending down. CRP is trending down. Will continue to follow 4. Diarrhea and nausea possibly 2/2 gastroenteritis -Patient states he has loose stool but denies multiple episodes. GI panel was negative 5. Elevated Cr and decreased GFR -Unclear what patients baseline is. According to the medical record his Cr in 2009 was 1.7. -Patients Cr trending down. IV fluids have been discontinued. Patient is tolerating PO 6. Hypertension -Patient is on Norvasc at home. He is currently normotensive. Hold parameters for SBP < 100. 7. DVT prophylaxis -Teds and Sequentials. Patient has blood tinged sputum likely secondary to his pneumonia DISPOSITION: Discharge home in 24-48 hours VS, I&O, 24H, [facility] Vital Signs/I&O Vital Signs Date Time Temp Pulse Resp B/P (MAP) Pulse Ox O2 Delivery O2 Flow Rate FiO2 07/26/19 08:00 98.4 72 20 164/92 (116) 97 Room Air 07/25/19 20:00 1.0 I&O- Last 24 Hours up to 6 AM 07/26/19 05:59 Intake Total 6175 ml Output Total 3725 ml Balance 2450 ml Laboratory Data 24H LABS Laboratory Tests 2 07/26/19 07:43: Nucleated Red Blood Cells % (auto) 0.0, Anion Gap 10, Glomerular Filtration Rate > 60.0, Calcium Level 8.6, C-Reactive Protein, Quantitative 13.70H CBC/BMP Laboratory Tests 07/26/19 07:43 Microbiology Microbiology 07/25/19 Gram Stain - Final, Resulted 07/25/19 Sputum Culture, Resulted Pending 07/25/19 Gastrointestinal Tract Panel (PCR) - Final, Complete 07/23/19 Blood Culture - Preliminary, Resulted No Growth after 48 hours. All Specime... 07/23/19 Blood Culture - Preliminary, Resulted No Growth after 48 hours. All Specime... GME ATTESTATION GME ATTESTATION My faculty preceptor for this patient encounter was physically present during the encounter and was fully available. All aspects of the patient interview, examination, medical decision making process, and medical care plan development were reviewed and approved by the faculty preceptor. The faculty preceptor is aware and concurs with the plan as stated in the body of this note and will attest to such by his/her cosignature. ATTENDING NOTE I, Jabari Soto, have independently examined this patient and performed my own physical exam, as well as reviewed the documentation and edited where necessary. I have discussed in detail with the resident / student the findings and plan of treatment as documented by the resident / student and edited their note. I agree with their findings and treatment plan and have edited their documentation. I will continue to follow the patient during this hospital stay. CARA SZYMANSKI DO Jul 26, 2019 10:03 JABARI SOTO MD Jul 26, 2019 13:16
[2019-07-26] MEDS: AZITHROMYCIN 250 MG TAB PO SCH (10:27)
[2019-07-26] MEDS: CEFDINIR 300 MG CAP (OMNICEF) PO SCH (20:40)
[2019-07-27] MEDS: IPRATROPIUM 0.5MG/ALBUTEROL 2.5MG INH SOL UD 3ML (DUONEB)(J7620) NEB SCH ×2 (01:06→08:26)
[2019-07-27 06:00] VITALS: BP 137/79
[2019-07-27 06:39] LABS: HEMATOCRIT 39.1 % (42.0-52.0); MEAN CORPUSCULAR HEMOGLOBIN 28.8 pg (27.0-33.0); MEAN CORPUSCULAR HGB CONC 33.2 g/dl (32.0-36.5); MEAN CORPUSCULAR VOLUME 86.7 fl (80.0-96.0); PLATELET COUNT, AUTOMATED 155 10^3/uL (150-450); RED BLOOD COUNT 4.51 10^6/uL (4.30-6.10); WHITE BLOOD COUNT 13.6 10^3/uL (4.0-10.0)
[2019-07-27 06:56] LABS: BLOOD UREA NITROGEN 13 MG/DL (7-18); CALCIUM LEVEL 8.7 MG/DL (8.5-10.1); CARBON DIOXIDE LEVEL 24 MEQ/L (21-32); CHLORIDE LEVEL 109 MEQ/L (98-107); CREATININE FOR GFR 1.35 MG/DL (0.70-1.30); GLOMERULAR FILTRATION RATE > 60.0 (>56); GLUCOSE, FASTING 98 MG/DL (70-100); POTASSIUM SERUM 3.4 MEQ/L (3.5-5.1); SODIUM LEVEL 140 MEQ/L (136-145)
[2019-07-27 08:23] VITALS: BP 137/79
[2019-07-27] MEDS: CEFDINIR 300 MG CAP (OMNICEF) PO SCH (08:23)
[2019-07-27] MEDS: guaiFENesin ER 600 MG TAB PO SCH (08:23)
[2019-07-27] MEDS: AZITHROMYCIN 250 MG TAB PO SCH (08:23)
[2019-07-27] MEDS ORDERED: POTASSIUM CHLORIDE 10 MEQ SR TABLET PO ONE (08:45)
--- NOTE | 2019-07-27 08:52 | REPVR ---
PROCEDURE INFORMATION: Exam: CT Chest Without Contrast Exam date and time: 07/27/2019 7:38 AM Age: 53 years old Clinical indication: Abnormal findings; Abnormal diagnostic tests; Abnormal ekg; Additional info: Elevated wbc - possible effusion TECHNIQUE: Imaging protocol: Computed tomography of the chest without contrast. 3D rendering: MIP and/or 3D reconstructed images were created by the technologist. Radiation optimization: All CT scans at this facility use at least one of these dose optimization techniques: automated exposure control; mA and/or kV adjustment per patient size (includes targeted exams where dose is matched to clinical indication); or iterative reconstruction. COMPARISON: CT Chest without contrast 07/23/2019 2:40 PM FINDINGS: Lungs: There is mildly increased, extensive consolidation with air bronchograms in the right upper lung, and mildly improved inflammatory change in the right lower lung with persistent segmental atelectasis. Pleural space: No pneumothorax. Small bilateral pleural effusions. Heart: Coronary artery calcifications are present. No cardiomegaly. No pericardial effusion. Aorta: No aortic aneurysm. Lymph nodes: Unremarkable. No enlarged lymph nodes. Kidneys and ureters: Partially imaged left kidney with severe atrophy and severe hydronephrosis, unchanged. Bones/joints: Unremarkable. No acute fracture. Soft tissues: Unremarkable. IMPRESSION: 1. Continued findings of right multifocal pneumonia, worsened in the upper lobe and improving in the lower lobe with increased, small bilateral pleural effusions. 2. Severe left hydronephrosis with cortical thinning again noted, partially imaged on this and on the comparison chest CT. Electronically signed by: Mauri Quiroz On 07/27/2019 08:51:32 AM
[2019-07-27] MEDS ORDERED: MUCI600T31 PO ×2 (10:15→10:29)
[2019-07-27] MEDS ORDERED: CEFD300CAP PO ×2 (10:15→10:29)
[2019-07-27] MEDS ORDERED: AZIT-12 PO ×2 (10:15→10:29)
--- NOTE | 2019-07-27 12:21 | DS.PDOC ---
Discharge Summary General Date of Admission Jul 23, 2019 at 15:45 Date of Discharge 07/27/2019 Discharge Summary PROCEDURES PERFORMED DURING STAY: [None]. ADMITTING DIAGNOSES / DISCHARGE DIAGNOSES: Right lung multifocal pneumonia; s/p Sepsis s/p Hypoxia 2/2 Multifocal pneumonia, unlikely 2/2 PE Diarrhea and nausea possibly 2/2 gastroenteritis Elevated Cr HTN DVT prophylaxis COMPLICATIONS/CHIEF COMPLAINT: Pneumonia. HISTORY OF PRESENT ILLNESS: Patient is a 16-year-old -[place] male with a history of HTN, CKD and an Atrophic left kidney . Presented to the emergency room after experiencing chills and shortness of breath. Patient denies any significant productive cough. Imaging in the emergency room had revealed extensive right-sided multifocal pneumonia. Patient was admitted to hospitalist service for further evaluation and treatment. HOSPITAL COURSE: Right lung multifocal pneumonia; s/p Sepsis - Presented with SOB, Fever / Chills; currently has resolution of fever / chills and improvement of SOB - Physical with presence of rhonchi at right lung field - Remains hemodynamically stable and afebrile - Leukocytosis has fluctuated; CRP continues to trend down - Imaging has show persistence of pneumonia / improvement - Patient will require repeat imaging in order to ensure full resolution of PNA; discussed this with patient and provided script for CT imaging of chest - Will need to continue antibiotics for minimum of 2 weeks given extent of pneumonia - Will have outpatient follow up with [facility] within 5 days s/p Hypoxia 2/2 Multifocal pneumonia, unlikely 2/2 PE - Currently saturating well on room air - Imaging was negative for PE Diarrhea and nausea possibly 2/2 gastroenteritis - Reports improvement in diarrhea - GI panel negative Elevated Cr - Cr has appeared to have improved better than baseline - s/p IV fluid hydration HTN - BP remains well controlled - c/w Amlodipine DVT prophylaxis - c/w TEDs / Sequentials DISCHARGE MEDICATIONS: Please see below. ALLERGIES: Please see below. PHYSICAL EXAMINATION ON DISCHARGE: Vitals (See below) General: Lying in bed, no acute distress, comfortable, AAOx3 HEENT: NC, AT CVS: RRR, +S1S2 Lungs: Fair air entry b/l, rhonchi appreciated at R upper / lower lung base, mild wheezing at right, left lung field without any adventitious lung sounds Abdomen: Soft, ND, NT Extremities: - Edema, - Calf tenderness LABORATORY DATA: Please see below. IMAGING: CXR 07/23: Multifocal right-sided pneumonia. CT Chest 07/23: Acute right-sided multifocal pneumonia. Follow-up to resolution. Renal US 07/23: 1. 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 No evidence of obstructive uropathy on the right. 2. 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 Otherwise negative. V/Q Scan 07/24: Matched ventilation perfusion deficit essentially globally in the right lung. No V/Q mismatch seen. Low probability scan for pulmonary embolus. Homogeneous uptake is seen in the left lung. CXR 07/25: Multifocal right sided infiltrates compatible with acute pneumonia unchanged. Right pleural effusion now suggested. Chest CT 07/27: 1. Continued findings of right multifocal pneumonia, worsened in the upper lobe and improving in the lower lobe with increased, small bilateral pleural effusions. 2. Severe left hydronephrosis with cortical thinning again noted, partially imaged on this and on the comparison chest CT. ACTIVITY: [As tolerated]. DISCHARGE PLAN: Follow up with [facility] within 5 days - Follow up imaging before completion of antibiotics - script provided Remain compliant with treatment plan and medications Return to the ER if you experience any problems DISPOSITION: Home DISCHARGE CONDITION: [Stable]. TIME SPENT ON DISCHARGE: 35 minutes Vital Signs/I&Os Vital Signs Date Time Temp Pulse Resp B/P (MAP) Pulse Ox O2 Delivery O2 Flow Rate FiO2 07/27/19 08:24 18 07/27/19 08:23 68 137/79 07/27/19 06:00 99.1 97 Room Air 07/25/19 20:00 1.0 I&O- Last 24 Hours up to 6 AM 07/27/19 06:00 Intake Total 2750 ml Output Total 1375 ml Balance 1375 ml Laboratory Data Labs 24H Laboratory Tests 2 07/27/19 06:19: Nucleated Red Blood Cells % (auto) 0.2H, Anion Gap 7L, Glomerular Filtration Rate > 60.0, Calcium Level 8.7, C-Reactive Protein, Quantitative 11.20H CBC/BMP Laboratory Tests 07/27/19 06:19 Microbiology Microbiology 07/25/19 Gram Stain - Final, Complete 07/25/19 Sputum Culture - Final, Complete 07/25/19 Gastrointestinal Tract Panel (PCR) - Final, Complete 07/23/19 Blood Culture - Preliminary, Resulted No Growth after 72 hours. All specime... 07/23/19 Blood Culture - Preliminary, Resulted No Growth after 72 hours. All specime... Discharge Medications Scheduled Amlodipine Besylate (Amlodipine Besylate) 2.5 Mg Tablet, 2.5 MG PO DAILY, (Reported) Azithromycin (Azithromycin) 250 Mg Tablet, 500 MG PO DAILY Cefdinir (Cefdinir) 300 Mg Capsule, 300 MG PO BID Cholecalciferol (Vitamin D3) (Vitamin D3) 1,000 Unit Tablet, 2,000 UNIT PO DAILY, (Reported) Guaifenesin (Mucinex) 600 Mg Tab.er.12h, 1,200 MG PO BID Scheduled PRN Albuterol Sulfate (Proair Hfa) 8.5 Gm Hfa.aer.ad, 2 PUFF INH Q4-6HP PRN for wheezing Allergies Coded Allergies: lisinopril (Verified Allergy, Unknown, SWELLING OF LIPS, 04/21/19) HERIBERTO SOTO MD Jul 27, 2019 12:21
[2019-07-28 00:07] LABS: BODY FLUID CULTURE Not indicated. (.); LEGIONELLA ANTIGEN URINE Negative (Negative); ORGANISM ID Not indicated. (.); SPECIMEN SOURCE Urine (.); URINE STREP PNEUMONIAE ANTIGEN Negative (Negative)
== END 2019-07-27 12:15 | disposition home or self-care (01) | DRG 871 ==
LOC: M ED 12:07 → M ED INP 15:45 → ENRESERVTM 15:53 → ENRESERVDT 15:53 → CANRESERV 15:53 → ENRESERVDT 16:05 → ENRESERVTM 16:05 → M MSPAV 16:25 → M PCU 19:29 → M MS5PR 07-26 11:28
PROVIDERS: ADMIT Internal Medicine; ATTEND Internal Medicine
DX: A41.9 Sepsis, unspecified organism (principal); J18.9 Pneumonia, unspecified organism; K52.9 Noninfective gastroenteritis and colitis, unspecified; I10 Essential (primary) hypertension; Z79.899 Other long term (current) drug therapy; Z88.8 Allergy status to other drugs, medicaments and biological substances

== ENCOUNTER → 2022-06-26 | Outpatient (CLI) | payer OTHER ==
[~2022-06-26] MED LIST changes: +AMLO2.5T3 PO; +AZIT-12 PO; +CEFD300CAP PO; +LISI10TA22 PO; -LISI10TA4 PO; +MUCI600T31 PO; +PROAAER10 INH; +VITA100066 PO; +ZITHTAB PO
[2022-06-26 11:45] LABS: CREATININE, URINE 198.3 MG/DL
[2022-06-26 11:47] LABS: HEMATOCRIT 45.6 % (42.0-52.0); HEMOGLOBIN 14.8 g/dl (13.5-17.5); MEAN CORPUSCULAR HGB CONC 32.5 g/dl (32.0-36.5); MEAN CORPUSCULAR VOLUME 89.4 fl (80.0-96.0); PLATELET COUNT, AUTOMATED 137 10^3/uL (150-450)
[2022-06-26 11:55] LABS: ALKALINE PHOSPHATASE 67 U/L (46-116); ALT/SGPT 26 U/L (7.0-40); AST/SGOT 20 U/L (<34); BILIRUBIN,TOTAL 0.5 MG/DL (0.3-1.2); BLOOD UREA NITROGEN 19 MG/DL (9-23); CALCIUM LEVEL 9.4 MG/DL (8.5-10.1); CARBON DIOXIDE LEVEL 30 MMOL/L (20-31); CHLORIDE LEVEL 103 MMOL/L (98-107); CHOLESTEROL LEVEL 228 MG/DL (<200); CHOLESTEROL RISK RATIO 3.28 (<5); GLOMERULAR FILTRATION RATE > 60.0 (>56); GLUCOSE, FASTING 108 MG/DL (60-100); HDL CHOLESTEROL 69.4 MG/DL (>40); LDL CHOLESTEROL 152.2 MG/DL (<100); NON-HDL-C 159 MG/DL; POTASSIUM SERUM 4.6 MMOL/L (3.5-5.1); SODIUM LEVEL 139 MMOL/L (136-145); TOTAL PROTEIN 7.4 G/DL (5.7-8.2); TRIGLYCERIDES LEVEL 32 MG/DL (<150)
[2022-06-26 11:56] LABS: THYROID STIMULATING HORMONE 0.805 uIU/ML (0.55-4.78); TOTAL 25(OH) VITAMIN D 38.3 NG/ML (20.0-100.0); VITAMIN B12 LEVEL 1174 PG/ML (211-911)
[2022-06-26 11:57] LABS: FREE T4 1.46 NG/DL (0.89-1.76)
[2022-06-26 13:24] LABS: HEMOGLOBIN A1c 5.6 % (4.0-6.0)
== END ==
LOC: M LAB 10:39
PROVIDERS: ATTEND Internal Medicine Hematology
DX: I10 Essential (primary) hypertension (principal); N40.0 Benign prostatic hyperplasia without lower urinary tract symptoms
CPT/HCPCS: 36415; 80053; 80061; 82043; 82306; 82607; 83036; 83525; 84439; 84443; 85027; 86140; G0103

== ENCOUNTER → 2023-08-13 | Outpatient (CLI) | payer OTHER | LOC: M RAD 10:05 | PROVIDERS: ATTEND Internal Medicine | DX: N18.30 Chronic kidney disease, stage 3 unspecified (principal); N13.30 Unspecified hydronephrosis ==